=== PATIENT | female | born 1955 | race Caucasian/White ===

== ENCOUNTER 2020-08-22 12:02 | Inpatient (IN) | payer OTHER ==
[2020-08-22] MEDS ORDERED: LACTATED RINGERS SOLUTION 1000 ML INFUS.BAG IV ONE ×2 (12:39→14:59)
[2020-08-22] MEDS ORDERED: ONDANSETRON 4 MG/2 ML VIAL IVPUSH ONE (12:43)
[2020-08-22] MEDS ORDERED: FAMOTIDINE 20 MG/50 ML IVPB 20 MG/50 ML MG IVPB ONE ×2 (12:52→13:17)
[2020-08-22 13:10] LABS: BASO % 0.3 % (0-2.0); HEMATOCRIT 44.7 % (32.4-45.2); HEMOGLOBIN 15.8 GM/dL (10.7-15.3); MCH 30.3 pg (25.7-33.7); MCHC 35.3 g/dl (32.0-36.0); MEAN CELL VOLUME 85.9 fl (80-96); MEAN PLT VOLUME 7.8 fl (7.5-11.1); MONO % 8.6 % (3.8-10.2); NEUT % 69.1 % (42.8-82.8); PLATELET COUNT 152 K/MM3 (134-434); RDW 12.6 % (11.6-15.6); WHITE BLOOD COUNT 3.7 K/mm3 (4.0-10.0)
[2020-08-22 13:15] LABS: EPI CELLS >36 /uL (0-25.1); HYALINE CASTS 3 /uL (0-3.1); PH,URINE 5.5 (5.0-8.0); URINE APPEARANCE CLOUDY; URINE BACTERIA 2079 /uL (0-1359); URINE BILIRUBIN NEGATIVE (NEGATIVE); URINE COLOR DK YELLOW; URINE GLUCOSE (UA) NEGATIVE (NEGATIVE); URINE KETONE 4+ (NEGATIVE); URINE LEUK ESTERASE TRACE (NEGATIVE); URINE NITRITE NEGATIVE (NEGATIVE); URINE PROTEIN 2+ (NEGATIVE); URINE RBC 9 /uL (0-23.9); URINE WBC 77 /uL (0-25.8)
[2020-08-22] MEDS ORDERED: ONDANSETRON 4 MG/2 ML VIAL ONE (13:17)
[2020-08-22 13:33] LABS: CHLORIDE 100 mmol/L (98-107); SODIUM 137 mmol/L (136-145)
[2020-08-22 13:35] LABS: ALBUMIN 4.3 g/dl (3.4-5.0); ANION GAP 8 MMOL/L (8-16); BLOOD UREA NITROGEN 10.5 mg/dL (7-18); CALCIUM 8.7 mg/dL (8.5-10.1); CO2 29 mmol/L (21-32); GLUCOSE,RANDOM 146 mg/dL (74-106)
[2020-08-22 13:39] LABS: CREATININE 0.7 mg/dL (0.55-1.3); SGOT/AST 44 U/L (15-37); SGPT/ALT 56 U/L (13-61)
[2020-08-22 13:40] LABS: BILIRUBIN,TOTAL 0.6 mg/dL (0.2-1); TOT PROT 7.9 g/dl (6.4-8.2)
[2020-08-22 13:42] LABS: ALK PHOS 63 U/L (45-117)
[2020-08-22] MEDS ORDERED: METOCLOPRAMIDE HCL INJECTION 10 MG/2 ML VIAL IVPB ONE (14:18)
[2020-08-22] MEDS ORDERED: METOCLOPRAMIDE HCL INJECTION 10 MG/2 ML VIAL ONE (14:31)
[2020-08-22] MEDS ORDERED: DEXAMETHASONE SOD PHOSPHATE 4 MG/1 ML VIAL IVPUSH ONE (17:24)
[2020-08-22] MEDS: ENOXAPARIN NA (PORCINE) 40 MG/0.4 ML DISP.SYRIN SQ SCH (18:14)
[2020-08-22] MEDS: KCL 10 MEQ IVPB 10 MEQ/100 ML INFUS.BAG IVPB SCH ×3 (18:14→21:31)
[2020-08-22 18:49] VITALS: BMI 27.6
[2020-08-22] MEDS ORDERED: LABETALOL HCL 5 MG/1 ML (100MG/20 ML VIAL) IVPUSH ONE (23:19)
[2020-08-22] MEDS ORDERED: LABETALOL HCL 5 MG/1 ML (100MG/20 ML VIAL) IVPB ONE (23:19)
[2020-08-23 07:21] LABS: HEMATOCRIT 41.8 % (32.4-45.2); HEMOGLOBIN 14.8 GM/dL (10.7-15.3); MCH 30.4 pg (25.7-33.7); MCHC 35.3 g/dl (32.0-36.0); MEAN PLT VOLUME 7.8 fl (7.5-11.1); PLATELET COUNT 166 K/MM3 (134-434); RBC 4.86 M/mm3 (3.60-5.2); RDW 12.5 % (11.6-15.6); WHITE BLOOD COUNT 3.1 K/mm3 (4.0-10.0)
[2020-08-23 07:28] LABS: INR 1.12 (0.83-1.09); PROTHROMBIN TIME (PATIENT) 13.7 SEC (9.7-13.0)
[2020-08-23 07:56] LABS: ALBUMIN 3.8 g/dl (3.4-5.0); BLOOD UREA NITROGEN 7.9 mg/dL (7-18)
[2020-08-23 08:00] LABS: CALCIUM 8.8 mg/dL (8.5-10.1); CREATININE 0.4 mg/dL (0.55-1.3); PHOSPHOROUS 3.4 mg/dL (2.5-4.9)
[2020-08-23 08:01] LABS: BILIRUBIN,TOTAL 0.7 mg/dL (0.2-1); MAGNESIUM 2.2 mg/dL (1.8-2.4); TOT PROT 7.2 g/dl (6.4-8.2)
[2020-08-23] MEDS: SODIUM CHLORIDE 1,000 ML IV SCH (09:10)
[2020-08-23] MEDS: ATENOLOL 50 MG TABLET (FP) PO SCH (09:11)
[2020-08-23] MEDS: ENOXAPARIN NA (PORCINE) 40 MG/0.4 ML DISP.SYRIN SQ SCH (09:11)
[2020-08-23] MEDS ORDERED: REMDESIVIR 200 MG in SODIUM CHLORIDE 250 ML IVPB ONE (13:00)
[2020-08-23] MEDS ORDERED: DEXTROSE 5%-WATER - 50 ML IVPB ONE (13:23)
[2020-08-23] MEDS ORDERED: cefTRIAXone SODIUM 1 GM VIAL ONE (13:23)
[2020-08-23] MEDS: AZITHROMYCIN IVPB 500 MG/250 ML BAG IVPB SCH (13:29)
[2020-08-23] MEDS: CEFTRIAXONE 1 GM in DEXTROSE 5%-WATER - 50 ML IVPB SCH (13:29)
[2020-08-23] MEDS: amLODIPine BESYLATE 10 MG TABLET (FP) PO SCH (13:30)
[2020-08-23] MEDS: ASCORBIC ACID 500 MG TABLET (FP) PO SCH ×2 (13:30→21:11)
[2020-08-23] MEDS: ZINC SULFATE 220 MG CAPSULE (FP) PO SCH (13:30)
[2020-08-23] MEDS: FAMOTIDINE 20 MG TABLET PO SCH (13:30)
[2020-08-23] MEDS: CHOLECALCIFEROL (VIT D3) 1,000 UNIT (25 MCG) TABLET PO SCH (13:30)
[2020-08-23] MEDS: DEXAMETHASONE SOD PHOSPHATE 4 MG/1 ML VIAL IVPUSH SCH (13:30)
[2020-08-24 07:39] LABS: BASO % 0.1 % (0-2.0); HEMATOCRIT 39.8 % (32.4-45.2); HEMOGLOBIN 14.2 GM/dL (10.7-15.3); LYMPH % 20.5 % (8-40); MCH 30.8 pg (25.7-33.7); MCHC 35.5 g/dl (32.0-36.0); MEAN CELL VOLUME 86.5 fl (80-96); MONO % 9.3 % (3.8-10.2); NEUT % 70.1 % (42.8-82.8); PLATELET COUNT 178 K/MM3 (134-434); RDW 12.3 % (11.6-15.6); WHITE BLOOD COUNT 4.7 K/mm3 (4.0-10.0)
[2020-08-24 08:09] LABS: ALBUMIN 3.6 g/dl (3.4-5.0); BLOOD UREA NITROGEN 9.3 mg/dL (7-18); CALCIUM 8.6 mg/dL (8.5-10.1)
[2020-08-24 08:12] LABS: CREATININE 0.5 mg/dL (0.55-1.3)
[2020-08-24 08:16] LABS: BILIRUBIN,TOTAL 0.7 mg/dL (0.2-1); TOT PROT 6.9 g/dl (6.4-8.2)
[2020-08-24] MEDS ORDERED: cefTRIAXone SODIUM 1 GM VIAL ONE (09:59)
[2020-08-24] MEDS ORDERED: DEXTROSE 5%-WATER - 50 ML IVPB ONE (10:00)
[2020-08-24] MEDS: CEFTRIAXONE 1 GM in DEXTROSE 5%-WATER - 50 ML IVPB SCH (10:02)
[2020-08-24] MEDS: DEXAMETHASONE SOD PHOSPHATE 4 MG/1 ML VIAL IVPUSH SCH (10:03)
[2020-08-24] MEDS: SODIUM CHLORIDE 1,000 ML IV SCH (10:03)
[2020-08-24] MEDS: ATENOLOL 50 MG TABLET (FP) PO SCH (10:03)
[2020-08-24] MEDS: ASCORBIC ACID 500 MG TABLET (FP) PO SCH (10:03)
[2020-08-24] MEDS: amLODIPine BESYLATE 10 MG TABLET (FP) PO SCH (10:03)
[2020-08-24] MEDS: ZINC SULFATE 220 MG CAPSULE (FP) PO SCH (10:03)
[2020-08-24] MEDS: ENOXAPARIN NA (PORCINE) 40 MG/0.4 ML DISP.SYRIN SQ SCH (10:03)
[2020-08-24] MEDS: FAMOTIDINE 20 MG TABLET PO SCH (10:03)
[2020-08-24] MEDS: CHOLECALCIFEROL (VIT D3) 1,000 UNIT (25 MCG) TABLET PO SCH (10:03)
[2020-08-24] MEDS: AZITHROMYCIN IVPB 500 MG/250 ML BAG IVPB SCH ×2 (10:04→10:13)
[2020-08-24] MEDS ORDERED: REMDESIVIR 100 MG in SODIUM CHLORIDE 250 ML IVPB SCH (13:00)
[2020-08-24] MEDS ORDERED: PT OWN MED DRAWER 7, Y5N ONE (13:24)
[2020-08-24 13:30] VITALS: BP 158/79; PULSE 83; TEMP 97.4
== END 2020-08-24 16:53 | disposition home or self-care (01) | DRG 137 ==
LOC: JER 12:02 → JERBED 15:53 → J7W 17:36
PROVIDERS: ADMIT Internal Medicine; ATTEND Internal Medicine
PROC: XW033E5 Introduction of Remdesivir Anti-infective into Peripheral Vein, Percutaneous Approach, New Technology Group 5 (ICD-10-PCS; principal; 2020-08-23)
DX: U07.1 COVID-19 (principal); J12.82 Pneumonia due to coronavirus disease 2019; I10 Essential (primary) hypertension; I16.0 Hypertensive urgency; N39.0 Urinary tract infection, site not specified; E87.6 Hypokalemia
CPT/HCPCS: 36415; 71045-TC-FY; 80053; 81003; 82728; 83615; 83690; 83735; 84100; 84484; 85025; 85027; 85379; 85610; 85730; 86140; 86769; 87086; 93005; 93010; 94761; 99285-25; C9399; C9803; U0003; U0005